=== PATIENT | male | born 1995 | race Caucasian/White ===

== ENCOUNTER 2025-02-02 10:32 | Outpatient (CLI) | payer OTHER, SELFPAY | END 2025-02-02 10:33 | disposition home or self-care (01) | PROVIDERS: PCP Family Medicine; Visit Provider Family Medicine | DX: Z00.00 Encounter for general adult medical examination without abnormal findings (principal); E66.9 Obesity, unspecified; Z20.828 Contact with and (suspected) exposure to other viral communicable diseases | CPT/HCPCS: 80053; 80061; 87529 ==